=== PATIENT | male | born 1985 | race Caucasian/White ===

== ENCOUNTER 2016-06-20 12:03 | Emergency (ER) | payer OTHER ==
[~2016-06-20] VITALS: Wt 113.6 kg
[2016-06-20] MEDS ORDERED: morphine 4 MG/ML VIAL IV STA (13:05)
[2016-06-20] MEDS ORDERED: SOD CHLORIDE 0.9% 500 ML IV STA (13:05)
[2016-06-20] MEDS ORDERED: ONDANSETRON 4 MG INJ IV STA (13:05)
[2016-06-20 13:25] LABS: BASOPHILS % 0.3 % (0.0-2.0); EOSINOPHILS # 0.1 10^3/ul (0.0-0.5); EOSINOPHILS % 0.5 % (0.0-7.0); HEMATOCRIT 45.3 % (42.0-52.0); HEMOGLOBIN 15.9 g/dl (14.0-18.0); LYMPHOCYTES # 3.4 10^3/ul (0.8-2.9); LYMPHOCYTES % 24.1 % (15.0-51.0); MEAN CORPUSCULAR HEMOGLOBIN 30.5 pg (29.0-33.0); MEAN CORPUSCULAR VOLUME 87.2 fl (82.0-101.0); MEAN PLATELET VOLUME 9.4 fl (7.4-10.4); MONOCYTE # 0.5 10^3/ul (0.3-0.9); MONOCYTES % 3.8 % (0.0-11.0); NEUTROPHIL # 10.1 10^3/ul (1.6-7.5); NEUTROPHILS % 71.3 % (39.0-77.0); PLATELET COUNT 227 10^3/UL (140-440); RED CELL DISTRIBUTION WIDTH 13.8 % (11.5-14.5); UNCORRECTED WBC 14.2 10^3/ul (4.8-10.8); WHITE BLOOD COUNT 14.2 10^3/ul (4.8-10.8)
[2016-06-20 13:31] LABS: ADD UMIC YES; URINE BILIRUBIN (Dip) 2+ (NEGATIVE); URINE BLOOD (Dip) 3+ (NEGATIVE); URINE COLOR DK. YELLOW (YELLOW); URINE GLUCOSE (Dip) NEGATIVE (NEGATIVE); URINE KETONES (Dip) TRACE (NEGATIVE); URINE LEUKOCYTE ESTERASE (Dip) NEGATIVE (NEGATIVE); URINE NITRITE (Dip) NEGATIVE (NEGATIVE); URINE TOTAL PROTEIN (Dip) 1+ (NEGATIVE); URINE UROBILINOGEN (Dip) 1.0 E.U./dL (0.1-1.0)
[2016-06-20 13:32] LABS: CONDITION 1
[2016-06-20] MEDS ORDERED: HYDROmorphONE 1 MG/ML SYG IV STA (13:37)
[2016-06-20 13:38] LABS: ALBUMIN 4.9 g/dl (3.3-4.9); POTASSIUM 4.5 mmol/L (3.5-5.1)
[2016-06-20 13:40] LABS: BILIRUBIN,INDIRECT 0.3 mg/dl (0-1.1); BILIRUBIN,TOTAL 0.3 mg/dl (0.2-1.3); CREATININE 1.05 mg/dl (0.61-1.24)
[2016-06-20 13:41] LABS: ALBUMIN/GLOBULIN RATIO 1.25; CALCIUM 10.3 mg/dl (8.4-10.2); TOTAL PROTEIN 8.8 g/dl (6.1-8.1)
[2016-06-20 13:43] LABS: ICTOTEST NEGATIVE (NEGATIVE)
[2016-06-20 13:44] LABS: BACTERIA,URINE MODERATE
--- NOTE | 2016-06-20 13:45 | RADRPT ---
PROCEDURE: CT Abdomen and Pelvis without contrast. CLINICAL INDICATION: Right flank pain. TECHNIQUE: Routine abdominopelvic CT was performed without intravenous contrast and reformatted in the axial, coronal, sagittal planes. Radiation dose: CTDIvol (mGy) = 23.6; total DLP mGy-cm = 1577. One or more of the following radiation dose techniques were used: -Automated exposure control. -Adjust of the mA and/or kV according to patient size. -Use of iterative reconstruction technque. COMPARISON: None. FINDINGS: There are diffuse steatotic changes in the enlarged liver, measuring up to 23 cm in craniocaudal tani gth. Distended gallbladder demonstrates no gallbladder wall thickening or inflammation. Biliary system i s nondilated. Pancreas, adrenal glands, and spleen are unremarkable by unenhanced CT. There is a 6 mm nonobstructive calculus identified in the lower pole of the right kidney. There is also a tiny a 1 mm calculus identified in the distal left UVJ with minimal to mild hydroureteronephr osis and perinephric inflammation. Left kidney and collecting system are grossly unremarkable. No abnormal bowel wall thickening or dilatation. The appendix is within normal limits. Small bilat eral fat containing inguinal hernias are present. IMPRESSION: Tiny 1 mm calculus identified within the right UVJ with minimal to mild hydroureteronephrosis and pe rinephric inflammation. Additional 6 mm nonobstructive calculus within the lower pole of the right kidney. Hepatic steatosis with hepatomegaly. RPTAT: EE .David Horvath MD, Date Time Electronically viewed and signed by .David Horvath MD, MD on 06/20/2016 13:48 .C/
[2016-06-20] MEDS ORDERED: IBUP-1542 PO (14:14)
[2016-06-20] MEDS ORDERED: HYDR-902 PO (14:14)
[2016-06-20] MEDS ORDERED: TAMS-14 PO (14:14)
[2016-06-20] MEDS ORDERED: ONDA8TAB14 PO (14:14)
[2016-06-20 14:23] VITALS: BP 132/88; PULSE 86; RESP 18; TEMP 97.9
--- NOTE | 2016-06-20 15:53 | ERD ---
ER Documentation Chief Complaint Date/Time DATE: 06/20/16 TIME: 15:46 Chief Complaint R. FLANK PAIN HPI Patient is a 31-year-old male with past medical history of kidney stones who presents to the emergency department with right flank pain. Patient states his pain started approximately 11 AM. Patient states his current pain is severe and stabbing in nature. He states his pain is 11 out of 10. Patient states that he did have a history of a 6 mm stone which she states he believes he has passed. Patient has seen a urologist and was told to continue to take Flomax however he has not had any procedures done yet. Patient denies any chest pain, shortness of breath, fever, chills, vomiting. Patient states that he does feel nauseous. Patient denies any pain with urination, hematuria or diarrhea. ROS All systems reviewed and are negative except as per history of present illness. Medications Home Meds Active Scripts Ibuprofen* (Motrin*) 600 Mg Tab, 600 MG PO Q6, #30 TAB Prov:EMERSON CHRISTINE PA-C 06/20/16 Tamsulosin Hcl* (Flomax*) 0.4 Mg Cap.er.24h, 0.4 MG PO BID, #20 CAP Prov:EMERSON CHRISTINE PA-C 06/20/16 Ondansetron (Ondansetron Odt) 8 Mg Tab.rapdis, 8 MG PO Q6H Y for NAUSEA AND/OR VOMITING, #10 TAB Prov:EMERSON CHRISTINE PA-C 06/20/16 Hydrocodone/Acetaminophen (Buckner 10-325 Tablet) 1 Each Tablet, 1 TAB PO Q6H Y for PAIN, #10 TAB Prov:EMERSON CHRISTINE PA-C 06/20/16 Allergies Allergies: Coded Allergies: No Known Allergy (Unverified , 04/02/16) PMhx/Soc Medical and Surgical Hx: pt denies Surgical Hx History of Surgery: No Anesthesia Reaction: No Hx Neurological Disorder: No Hx Respiratory Disorders: No Hx Cardiac Disorders: No Hx Psychiatric Problems: No Hx Miscellaneous Medical Probl: Yes (kidney stone) Hx Alcohol Use: No Hx Substance Use: No Hx Tobacco Use: Yes FmHx Family History: No diabetes Physical Exam Vitals Vital Signs Date Time Temp Pulse Resp B/P Pulse Ox O2 Delivery O2 Flow Rate FiO2 06/20/16 14:23 97.9 86 18 132/88 100 06/20/16 12:06 97.6 69 20 138/91 100 Physical Exam GENERAL: Well-developed, well-nourished male. Appears in pain. HEAD: Normocephalic, atraumatic. EYES: Pupils are equally reactive bilaterally. EOMs grossly intact. No conjunctival erythema. ENT: Moist mucous membranes. No uvula deviation. No kissing tonsils. NECK: Supple. No lymphadenopathy or thyromegaly. No meningismus. LUNG: Clear to auscultation bilaterally. No rhonchi, wheezing, rales or coarse breath sounds. HEART: Regular rate and rhythm. No murmurs, rubs or gallops. ABDOMEN: No scars, ecchymosis or rashes noted. Soft, nontender, and nondistended. Positive bowel sounds in all four quadrants. No rebound tenderness , no guarding. (-) McBurneys point tenderness.+R sided CVA tenderness. BACK: No midline tenderness. EXTREMITIES: Equal pulses bilaterally. No peripheral clubbing, cyanosis or edema. No unilateral leg swelling. NEUROLOGIC: Alert and oriented. Moving all four extremities without any difficulty. Normal speech. Steady gait. SKIN: Normal color. Warm and dry. No rashes or lesions. Result Diagram: 06/20/16 1315 06/20/16 1315 Results 24 hrs Laboratory Tests Test 06/20/16 13:15 Alanine Aminotransferase (ALT/SGPT) 96IU/L Albumin 4.9g/dl Albumin/Globulin Ratio 1.25 Alkaline Phosphatase 98IU/L Anion Gap 21 Aspartate Amino Transf (AST/SGOT) 44IU/L Basophils # 0.010^3/ul Basophils % 0.3% Blood Urea Nitrogen 14mg/dl Calcium Level 10.3mg/dl Carbon Dioxide Level 26mmol/L Chloride Level 102mmol/L Creatinine 1.05mg/dl Direct Bilirubin 0.00mg/dl Eosinophils # 0.110^3/ul Eosinophils % 0.5% Globulin 3.90g/dl Glucose Level 103mg/dl Hematocrit 45.3% Hemoglobin 15.9g/dl Indirect Bilirubin 0.3mg/dl Lipase 32U/L Lymphocytes # 3.410^3/ul Lymphocytes % 24.1% Mean Corpuscular Hemoglobin 30.5pg Mean Corpuscular Hemoglobin Concent 35.0g/dl Mean Corpuscular Volume 87.2fl Mean Platelet Volume 9.4fl Monocytes # 0.510^3/ul Monocytes % 3.8% Neutrophils # 10.110^3/ul Neutrophils % 71.3% Nucleated Red Blood Cells # 0.010^3/ul Nucleated Red Blood Cells % 0.0/100WBC Platelet Count 20269^3/UL Potassium Level 4.5mmol/L Red Blood Count 5.2010^6/ul Red Cell Distribution Width 13.8% Sodium Level 144mmol/L Total Bilirubin 0.3mg/dl Total Protein 8.8g/dl Urine Amorphous Urates MODERATE Urine Bacteria MODERATE Urine Bilirubin 2+ Urine Clarity CLOUDY Urine Color DK. YELLOW Urine Glucose NEGATIVE% Urine Hemoglobin 3+ Urine Ictotest NEGATIVE Urine Ketones TRACE Urine Leukocyte Esterase NEGATIVE Urine Microscopic RBC 2-5/HPF Urine Microscopic WBC NONE SEEN/HPF Urine Nitrite NEGATIVE Urine Specific [place] >=1.030 Urine Total Protein 1+ Urine Urobilinogen 1.0 E.U./dL Urine pH 6.0 White Blood Count 14.210^3/ul Current Medications Medications (Trade) Dose Ordered Sig/Shane Route PRN Reason Start Time Stop Time Status Last Admin Dose Admin Sodium Chloride (NS) 500 ml @ 500 mls/hr Q1H STAT IV 06/20/16 13:05 06/20/16 14:04 DC 06/20/16 13:17 Morphine Sulfate (morphine) 4 mg ONCE STAT IV 06/20/16 13:05 06/20/16 13:07 DC 06/20/16 13:17 Ondansetron HCl (Zofran Inj) 4 mg ONCE STAT IV 06/20/16 13:05 06/20/16 13:07 DC 06/20/16 13:16 Hydromorphone HCl (Dilaudid) 1 mg ONCE STAT IV 06/20/16 13:37 06/20/16 13:39 DC 06/20/16 13:42 Procedures/MDM ED COURSE: The patient was stable throughout ED course. I kept the patient and/or family informed of laboratory and diagnostic imaging results throughout the ED course. d. DIAGNOSTIC IMAGING: Read by radiologist. DIAGNOSTIC IMAGING REPORT Patient: JOSH THOMPSON : 1985 Age: 31 Sex: M MR #: [id number] DOS: 06/20/16 1305 Ordering MD: EMERSON CHRISTINE PA-C Location: [facility] Room/Bed: PROCEDURE: CT Abdomen and Pelvis without contrast. CLINICAL INDICATION: Right flank pain. TECHNIQUE: Routine abdominopelvic CT was performed without intravenous contrast and reformatted in the axial, coronal, sagittal planes. Radiation dose: CTDIvol (mGy) = 23.6; total DLP mGy-cm = 1577. One or more of the following radiation dose techniques were used: -Automated exposure control. -Adjust of the mA and/or kV according to patient size. -Use of iterative reconstruction technque. COMPARISON: None. FINDINGS: There are diffuse steatotic changes in the enlarged liver, measuring up to 23 cm in craniocaudal length. Distended gallbladder demonstrates no gallbladder wall thickening or inflammation. Biliary system is nondilated. Pancreas, adrenal glands, and spleen are unremarkable by unenhanced CT. There is a 6 mm nonobstructive calculus identified in the lower pole of the right kidney. There is also a tiny a 1 mm calculus identified in the distal left UVJ with minimal to mild hydroureteronephrosis and perinephric inflammation. Left kidney and collecting system are grossly unremarkable. No abnormal bowel wall thickening or dilatation. The appendix is within normal limits. Small bilateral fat containing inguinal hernias are present. IMPRESSION: Tiny 1 mm calculus identified within the right UVJ with minimal to mild hydroureteronephrosis and perinephric inflammation. Additional 6 mm nonobstructive calculus within the lower pole of the right kidney. Hepatic steatosis with hepatomegaly. RPTAT: EE .David Horvath MD, MD Date Time Electronically viewed and signed by .David Horvath MD, MD on 06/20/2016 13:48 .C/ CC: EMERSON CHRISTINE PA-C PROCEDURES: None. MEDICATIONS GIVEN: Zofran, morphine, Dilaudid, IV fluids Patient tolerated medication well with no adverse reactions. Patient reported improvement in pain. No episodes of vomiting were noted during ED course. MEDICAL DECISION MAKING: This is a 31-year-old male who presents with right-sided flank pain 3 hours. Vital signs were reviewed. Patient is afebrile. Patient was not hypoxic. Abdominal exam revealed + CVA tenderness on the right side. CBC showed no evidence of severe anemia. Patient did have a white count of 14.2. This is likely due stress reaction vs inflammatory process. CMP showed no evidence of electrolyte abnormalities, severe acidosis, alkalosis, renal failure, or liver disease. Lipase showed no evidence of acute pancreatitis. CT imaging showed Tiny 1 mm calculus identified within the right UVJ with minimal to mild hydroureteronephrosis and perinephric inflammation. Additional 6 mm nonobstructive calculus within the lower pole of the right kidney. Hepatic steatosis with hepatomegaly. At this time, patient's presentation is most consistent with nephrolithiasis and hepatomegaly. I have a much lower clinical concern for acute coronary syndrome, AAA, mesenteric ischemia, DKA, bowel perforation, bowel obstruction, pancreatitis, diverticulitis, UTI, pyelonephritis, appendicitis, constipation, testicular torsion, epididymitis, urethritis, or prostatitis. Low suspicion for infected stone given the patient had no acute infection of his urine. PRESCRIPTIONS: Buckner, Flomax, ibuprofen, Zofran DISCHARGE: At this time, patient is stable for discharge and outpatient management. I have instructed the patient to follow-up with his/her primary care physician in 1-2 days. Patient will need to follow-up with a urologist for further management of his kidney stones.I have instructed the patient to promptly return to the ER at any time for any new or worsening symptoms including increased pain, nausea, vomiting, diarrhea, fever, weakness or LOC. The patient and/or family expressed understanding of and agreement with this plan. All questions were answered. Home care instructions were provided. Departure Diagnosis: Primary Impression: Kidney stone Condition: Stable Patient Instructions: Treating Kidney Stones: Medications Referrals: MONICA GUERRERO MD,ALINA LUNA MD,COLIN ZUNIGA,ANG VERA MD [facility] YOU HAVE RECEIVED A MEDICAL SCREENING EXAM AND THE RESULTS INDICATE THAT YOU DO NOT HAVE A CONDITION THAT REQUIRES URGENT TREATMENT IN THE EMERGENCY DEPARTMENT. FURTHER EVALUATION AND TREATMENT OF YOUR CONDITION CAN WAIT UNTIL YOU ARE SEEN IN YOUR DOCTORS OFFICE WITHIN THE NEXT 1-2 DAYS. IT IS YOUR RESPONSIBILITY TO MAKE AN APPOINTMENT FOR FOLOW-UP CARE. IF YOU HAVE A PRIMARY DOCTOR --you should call your primary doctor and schedule an appointment IF YOU DO NOT HAVE A PRIMARY DOCTOR YOU CAN CALL OUR PHYSICIAN REFERRAL HOTLINE AT IF YOU CAN NOT AFFORD TO SEE A PHYSICIAN YOU CAN CHOSE FROM THE FOLLOWING [facility] [address] [facility] [address] [facility] [address] [facility] [address] [facility] [address] [facility]. [facility] [address] [facility]. [facility] YOU HAVE RECEIVED A MEDICAL SCREENING EXAM AND THE RESULTS INDICATE THAT YOU DO NOT HAVE A CONDITION THAT REQUIRES URGENT TREATMENT IN THE EMERGENCY DEPARTMENT. FURTHER EVALUATION AND TREATMENT OF YOUR CONDITION CAN WAIT UNTIL YOU ARE SEEN IN YOUR DOCTORS OFFICE WITHIN THE NEXT 1-2 DAYS. IT IS YOUR RESPONSIBILITY TO MAKE AN APPOINTMENT FOR FOLOW-UP CARE. IF YOU HAVE A PRIMARY DOCTOR --you should call your primary doctor and schedule and appointment IF YOU DO NOT HAVE A PRIMARY DOCTOR YOU CAN CALL OUR PHYSICIAN REFERRAL HOTLINE AT . IF YOU CAN NOT AFFORD TO SEE A PHYSICIAN YOU CAN CHOSE FROM THE FOLLOWING [facility]: [facility] [address] [place] [address] [facility] [address] [place] [address] [facility] [address] [place] [address] Additional Instructions: Call your primary care doctor TOMORROW for an appointment during the next 1-2 days.See the doctor sooner or return here if your condition worsens before your appointment time. Patient will need to see a urologist for further management of his kidney stones. Patient denies to follow-up with his urologist in the next 1-2 days. EMERSON CHRISTINE PA-C Jun 20, 2016 15:53
== END 2016-06-20 14:24 | disposition home or self-care (01) ==
LOC: FTE 12:03
DX: N20.0 Calculus of kidney (principal); R11.2 Nausea with vomiting, unspecified; Z87.891 Personal history of nicotine dependence
CPT/HCPCS: 74176; 80053; 81001; 83690; 85025; J1170; J2270; J2405; J7040; 36415; 81003; 96374; 96375